=== PATIENT | male | born 1955 | race Caucasian/White ===

== ENCOUNTER 2016-12-06 08:40 | Day surgery (SDC) | payer OTHER ==
[~2016-12-06] VITALS: Ht 157.5 cm; Wt 90.7 kg
[~2016-12-06 08:40] MED LIST: 0.9% Sodium Chloride 1,000 ML IV PRN; FLUT9.9S NS; LOSA25TA21 PO; MELO-253 PO; Sodium Chloride LOK Flush 10 mL Syringe IV PRN; fentaNYL-PF 50 mCg/mL 2 mL Inj IVPUSH PRN
[2016-12-06 09:10] VITALS: BP 151/100; PULSE 65; RESP 17; O2SAT 94
[2016-12-06 10:06] VITALS: BP 131/83; PULSE 71; RESP 16; O2SAT 95
[2016-12-06 10:18] VITALS: BP 137/88; PULSE 74; RESP 14; O2SAT 94
--- NOTE | 2016-12-06 10:21 | PCM.ENDEGD ---
EGD Date of Service: December 06, 2016 Physician Ravi Acuña MD Pre Procedure Diagnosis: Varices screening Post Procedure Dx & Findings: Gastric varices gastric erosions nonobstructing Schatzki's ring Procedure Esophagogastroduodenoscopy PROCEDURE IN DETAIL: After proper sedation, Olympus video endoscope was inserted into patient's mouth and esophagus was successfully intubated. Scope introduced esophagus. Esophagus showed normal shiny whitish mucosa consistent with squamous cell component. Z line was intact at 37 cm from the incisors. Minimal scarring at the GE junction noted. No inflammation noted. Scope further advanced to the stomach. Stomach showed normal shiny mucosa with normal appearing rugae folds without any ulcer mass erosion. Cardia fundus body antrum pylorus were all visualized. Retroflexion was done. On retroflexion, gastric varices noted isolated. There were also several sub mm erosions. These were biopsied. Stomach was easily inflated and deflatable using air. Scope further events to the distal duodenum. Duodenum revealed normal villous structures with normal appearing folds without any mass ulcer erosion. Impression Isolated gastric varices Minimal scarring at the GE junction Gastric erosions Recommendation CT of the abdomen and pelvis pancreatic protocol to rule out pancreatic issues and Splenic vein thrombosis Presedation Assessment Risks and Benefits Informed consent was obtained from the patient after all risks and benefits including but not limited to drug reaction, infection, pain, bleeding, perforation, as well as alternatives were discussed. Patient monitoring Continuous pulse oximetry, cardiac monitoring, blood pressure monitoring, IV access, and oxygen at 2L per nasal cannula. Periprocedural Fentanyl: Fentanyl 100mcg Incrementally Midazolam: Midazolam 4mg Incrementally Complications There were no periprocedural complications identified. Post Procedure Plan Post Procedure Recommendations 1. Restrict activities today. 2. Resume normal activities in the morning. 3. Resume medications. 4. GERD behavioral modification: - Avoid fatty, acidic, spicy, large meals - Do not lie down after meals - Do not eat or drink anything for at least 2 1/2 hours before going to bed at night - Discontinue tobacco and alcohol - Decrease or avoid caffeine - Avoid chocolate and mints - Decrease weight - Avoid aspirin and non steroidal anti-inflammatory agents (NSAID) such as Aleve, Advil, Mobic, Naproxen, Ibuprofen, etc 5. Add proton pump inhibitor. Take 30 minutes before 1st meal of the day. 6. Patient informed of normal post procedure side effects as bloating, drowsiness, blood streaking in the stool 7. If gastric biopsy reveal H.pylori, continue with appropriate treatment 8. If small bowel biopsy reveals celiac, continue with appropriate treatment 9. Please don't hesitate to call me with any questions Ravi Acuña MD December 06, 2016 10:20
[2016-12-06 10:25] VITALS: BP 145/95; PULSE 69; RESP 16; O2SAT 96
--- NOTE | 2016-12-07 19:46 | PATH ---
SURGICAL PATHOLOGY Attending Physician:Ravi Acuña M.D. CASE STATUS: Signed Out PATIENT NAME: REINA HANNA PID: [id number] : 1955 DATE COLLECTED:12/06/2016 18:28 SPECIMEN: Gastric, Biopsy CLINICAL HISTORY: 1). GASTRIC EROSION BIOPSY FINAL DIAGNOSIS: Gastric Erosion, Biopsy: Portions of gastric body-type mucosa with mild chronic active gastritis. No H. pylori organisms identified by H&E stain. Negative for intestinal metaplasia, dysplasia, and neoplasia. Immunohistochemistry studies pending; results will be reported as an addendum. ICD10: K29.7 GROSS DESCRIPTION: The specimen is received in one formalin filled container labeled with the patient's name, sublabeled "gastric erosion" and consists of 3 portions of tissue which aggregate to 0.3 x 0.3 x 0.2 CM. The specimen is entirely submitted in one cassette. 12/06/2016 [facility] ICD-9 CODES: CPT CODES: 1: 29416, 46273 PROCEDURE/ADDENDA: Addendum SPI Addendum Diagnosis Gastric erosion, biopsy: Negative for H. pylori organisms by immunohistochemistry studies. IMMUNOHISTOCHEMISTRY: H. pylori: Negative * This test was developed and its performance characteristics determined by [employer]. It has not been cleared or approved by the U.S. Food and Drug Administration. The FDA has determined that such clearance or approval is not necessary. This test is used for clinical purposes. It should not be regarded as investigational or for research. Addendum Comment {Not Entered} Electronically Signed Out Jazmin Dobbs MD Electronically Signed Out Jazmin Dobbs MD [facility], [place] [address] Technical component performed at [facility], [address] [place] [address] [address], [address]
== END 2016-12-06 23:59 | disposition home or self-care (01) ==
LOC: END 08:40
PROVIDERS: ATTEND Internal Medicine
DX: K29.50 Unspecified chronic gastritis without bleeding (principal); I85.00 Esophageal varices without bleeding; K70.30 Alcoholic cirrhosis of liver without ascites
CPT/HCPCS: 43239; G0500; J2250; J3010; J7030